=== PATIENT | female | born 1955 | race Two or more races ===

== ENCOUNTER 2019-07-19 21:39 | Emergency (ER) | payer BC, OTHER ==
[~2019-07-19] VITALS: Ht 170.2 cm; Wt 83.5 kg
[2019-07-19] MEDS ORDERED: ESCI10TA PO (21:47)
[2019-07-19] MEDS ORDERED: CYCL5TAB PO (21:47)
[2019-07-19] MEDS ORDERED: TRAM50TA2 PO (21:47)
[2019-07-19] MEDS ORDERED: LANS15CA13 PO (21:47)
[2019-07-19] MEDS ORDERED: HYDROCODONE/APAP 5-325MG TABLET PO ONE (22:30)
[2019-07-19] MEDS ORDERED: HYDROCODONE/APAP 5-325MG TABLET ONE (22:55)
--- NOTE | 2019-07-19 23:39 | NUR ---
Patient discharged to home in stable condition. Written and verbal after care instructions given. Patient verbalizes understanding of instructions. Stressed follow up or return to ER for worsening s/s. Patient's daughter is taking her home.
[2019-07-19 23:40] VITALS: BP 135/89
== END 2019-07-19 23:41 | disposition home or self-care (01) ==
LOC: ER 21:39
DX: M25.512 Pain in left shoulder (principal); H02.844 Edema of left upper eyelid; F41.9 Anxiety disorder, unspecified; Z87.11 Personal history of peptic ulcer disease; Z79.899 Other long term (current) drug therapy
CPT/HCPCS: A4663